=== PATIENT | female | born 1975 | race Hispanic/Latino ===

== ENCOUNTER 2020-02-04 19:05 | Emergency (ER) | payer SELFPAY ==
[~2020-02-04] VITALS: Ht 154.9 cm; Wt 64.9 kg
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
[2020-02-04] MEDS ORDERED: CYCLOBENZAPRINE10 MG PO (20:37)
--- OUTSIDE RECORDS SUMMARY | 2020-02-04 20:56 | XMS REPORT | Continuity of Care Document ---
Author Author [facility] t Organization [facility] Address [address] [place] [address] Phone Unavailable Care Team Providers Care Vp Mobile Products Name Role Phone Doctor Unassigned, Name No Attphys Unavailable Jade Lezama CNM Attphys Payers Payer Name Policy Type Policy Number Effective Date Expiration Date S ource Problems This patient has no known problems. Allergies, Adverse Reactions, Alerts Allergy Name Allergy Type Status Severity Reaction(s) Onset Date Inacti ve Date Treating Clinician Comments Source No Known Allergies DA Active U 2014-12-10 00:00:00 [facility] Medications This patient has no known medications. Procedures This patient has no known procedures. Encounters Start Date/Time End Date/Time Encounter Type Admission Type Attendi [facility] [[email or web address] Care Department Encounter ID Source 2019-11-01 00:00:00 2019-11-01 00:00:00 Orders Only D octor Unassigned, [place] [facility] [id number] 2019-10-25 09:03:43 2019-10-25 10:43:25 Office Visit Jade Lezama [facility] [id number] 2019-10-25 00:00:00 2019-10-25 00:00:00 Orders Only D octor Unassigned, [place] [facility] [id number] Results Test Description Test Time Test Comments Results Result Comments Source STREPTOCOCCUS PCR SCREEN 2019-02-03 00:49:00 Test Item STREPTOCOCCUS DYSGALACTIAE (test code = STREPGC) NEGATIVE FOR G/C N EGATIVE STREPA MOLECULAR (test code = STREPAMOL) NEGATIVE FOR GRP A NEGATIV E
== END 2020-02-04 20:55 | disposition home or self-care (01) ==
LOC: FSED 19:55
DX: S13.4XXA Sprain of ligaments of cervical spine, initial encounter (principal); V53.6XXA Passenger in pick-up truck or van injured in collision with car, pick-up truck or van in traffic accident, initial encounter; Y92.488 Other paved roadways as the place of occurrence of the external cause
CPT/HCPCS: 99282

== ENCOUNTER 2020-03-30 18:08 | Emergency (ER) | payer SELFPAY ==
[~2020-03-30] VITALS: Ht 154.9 cm; Wt 64.9 kg
[~2020-03-30 18:08] MED LIST: CYCLOBENZAPRINE10 MG PO
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
== END 2020-03-30 18:46 | disposition home or self-care (01) ==
LOC: FSED 18:28
DX: S93.402A Sprain of unspecified ligament of left ankle, initial encounter (principal); X50.1XXA Overexertion from prolonged static or awkward postures, initial encounter; Y93.01 Activity, walking, marching and hiking
CPT/HCPCS: 99283